=== PATIENT | male | born 1995 ===

== ENCOUNTER → 2024-08-20 | Day surgery (SDC) | payer OTHER ==
[2024-08-17 16:25] LABS: Absolute Basophils 0.1 K/uL (0-0.5); Absolute Eosinophils 0.3 K/uL (0-0.5); Absolute Monocytes 0.6 K/uL (0.1-1.3); Absolute Neutrophil 3.9 K/uL (1.8-8.0); Eosinophils % 3.8 % (0-4.4); Hematocrit 42.5 % (39.6-49.0); Hemoglobin 14.1 g/dL (13.6-17.9); Lymphocytes % 37.9 % (15.3-44.8); MCH 30.8 pg (27.0-35.0); MCHC 33.1 g/dL (32.0-36.0); MPV 7.1 fL (7.6-11.3); Monocytes % 8.1 % (3.3-12.3); Neutrophils % 49.2 % (41.7-73.7); Nucleated Red Blood Cells % 0.1 % (0-0); Platelets 316 thou/uL (152-406); RBC Red Blood Cell Count 4.57 M/uL (4.33-5.43); Red Cell Distribution Width 13.5 % (12.1-15.2)
[2024-08-17 16:36] LABS: Anion Gap 7.9 mEq/L (5.0-15.0); Potassium 3.9 mEq/L (3.5-5.1)
[~2024-08-20] MED LIST: BUPIVACAINE 0.5% PF 10 ML VIAL ONE; CEFAZOLIN SODIUM 1 GM/VIAL ONE; FENTANYL CITR 100 MCG/2 ML ONE; GLYCOPYRROLATE 0.2 MG/ML SYR ONE; KETOROLAC 30 MG/ML INJ ONE; LIDOCAINE 2% MPF 5 ML VIAL ONE; MIDAZOLAM HCL 2 MG/2 ML INJ ONE; Mastisol Adhesive Liq ONE; NEOSTIGMINE 1 MG/ML -10 ML VIAL ONE; ONDANSETRON 4 MG/2 ML VIAL ONE; ROCURONIUM 50 MG/5 ML VIAL IV ONE; Ringers Lactate 1,000 ML IV ONE; dexAMETHasone 10 MG/ML VIAL ONE; propofoL 200 MG/20 ML VIAL IV ONE
[2024-08-20] MEDS: CIPROFLOXACIN 400mg IV 400 MG/200 ML BAG IV ONE (09:40)
--- NOTE | 2024-08-20 10:46 | P.BOP ---
Preoperative diagnosis: tender umbilical hernia Postoperative diagnosis: same Primary procedure: Laparoscopic repair of tender umbilical hernia with mesh Estimated blood loss: <10cc Specimen: sac Findings: as above Anesthesia: General Complications: None Implants: medium ventralex mesh Transferred to: Recovery Room Condition: Good
[2024-08-20] MEDS: HYDROCODONE/APAP 10/325 TAB ONE (11:30)
[2024-08-20 12:28] VITALS: BP 119/83; O2SAT 97
[2024-08-20 12:29] VITALS: TEMP 97
--- NOTE | 2024-08-21 19:59 | OP ---
Date of Procedure: 08/21/2024 Surgeon: Holger Patterson MD Preoperative Diagnosis: Tender umbilical hernia. Postoperative Diagnosis: Tender umbilical hernia. Procedure: Laparoscopic repair of tender umbilical hernia with mesh. Estimated Blood Loss: Less than 10 cc. Specimen: Hernia sac. Anesthesia: General plus local. Implant: A medium Ventralex mesh. Indications: This is a case of a 28-year-old patient who came to us with a tender umbilical hernia. The benefits, alternatives, and risks of laparoscopic possible open repair with possible use of mesh fully explained to him, which include, but not limited to, infection, bleeding, damage to adjacent s tructures, anesthesia complication, recurrence, OK, and even . He also understands this may not relieve any symptoms. He might need more than one surgical intervention. He also understand that w zachery might put mesh in that region. So pros and cons of mesh placement was discussed with the patient. All the questions were answered to his satisfaction. He signed a consent. Description Of Procedure: The patient was brought to the operating room, placed in supine position. Anesthesia was done without complication. Abdominal area was prepped and draped in sterile fashion. Local anesthesia was applied followed by sharp incision of the skin in the periumbilical region. W zachery did that because his hernia is there and we are going to use this same opening to put a Yuliana troc ar in. Once we opened the umbilical skin, we were able to identify the hernia sac. There was an ind uration of fatty tissue in that area, probably from previous incarceration. We proceeded to remove t hat tissue from that region and then basically clean the fascial edges. We noticed that fascial edge s are weak and fray. So we should use and reinforce this area with mesh. In that case, I put a Ace on trocar through that area after putting Vicryl #1 inside of the fascia and obtained pneumoperitoneu m. We placed 2 more trocars, 5 mm each one of them on the left lower abdomen. This allowed me to ch mercedes the camera, so on that position, I am visualizing the midline incision better. At that moment, we then selected the mesh that overlapped the area about 3-5 cm. We selected Ventralex, put it throu gh the Yuliana trocar, removed the Yuliana trocar and then with the help of SorbaFix similar device, we proceeded to secure this mesh to the anterior abdominal wall. Then, we trimmed the mesh straps and continue fixating this to the anterior abdominal wall to prevent any intestines to come in between th e mesh and the abdominal wall. After that, we put Vicryl #1 in the fascia and closed the defects als o primarily. Laparoscope was placed. Once again, we noticed the mesh to be intact. No bleeding. N o enterotomies. Irrigation was done of the subcutaneous area and then the skin was approximated with 3-0 chromic subcutaneous and subcuticular with Steri-Strip. Sponge counts and instrument counts wer e correct. Patient tolerated the procedure well. Patient sent to Recovery in stable condition. YOVANY/MICKIE Voice ID: [id number] Report ID: [id number]
--- NOTE | 2024-08-21 20:02 | DS ---
Diagnosis: Tender umbilical hernia. Procedure: Laparoscopic repair of tender umbilical hernia with mesh. Condition: Stable. Disposition: Home. Activity: As tolerated. No heavy lifting. Discharge Instructions: Follow up in my office in 1 week. Call for appointment at [phone]. Keep a alexandr dry for 48 hours, then may shower. Keep Steri-Strip intact. For medications, see orders. YOVANY/MICKIE Voice ID: [id number] Report ID: [id number]
== END | disposition home or self-care (01) ==
LOC: OR 09:00
PROVIDERS: ATTEND Surgery
PROC: 0WUF4JZ Supplement Abdominal Wall with Synthetic Substitute, Percutaneous Endoscopic Approach (ICD-10-PCS; principal; 2024-08-20 09:30)
DX: K42.9 Umbilical hernia without obstruction or gangrene (principal)
CPT/HCPCS: 49591; 85025; 80048; 36415; J2704; J2710; J2001; J2250; J3010; J1100; J2405; J0744; J7120; J0690